=== PATIENT | female | born 1990 | race African-American/Black ===

== ENCOUNTER 2023-10-01 00:50 | Emergency (ER) | payer MEDICAID, OTHER ==
[~2023-10-01] VITALS: Ht 167.6 cm; Wt 100.0 kg
[~2023-10-01 00:50] MED LIST: ACET-3161 PO; DOCU-138 PO; FERR-63 PO; IBUP-779 PO
[2023-10-01 01:09] VITALS: BP 110/67; PULSE 96; RESP 16; TEMP 99.1; O2SAT 98
== END 2023-10-01 03:41 | disposition home or self-care (01) ==
LOC: ER 00:54
DX: B34.9 Viral infection, unspecified (principal); Z79.899 Other long term (current) drug therapy
CPT/HCPCS: 99291